=== PATIENT | female | born 1960 | race Hispanic/Latino ===

== ENCOUNTER → 2024-02-16 | Outpatient (CLI) | payer MEDICAID ==
--- NOTE | 2024-02-16 09:57 | HMCIMG ---
UPPER GI TRACT, WO KUB REASON: Heartburn, Epigastric pain. COMPARISON: None TECHNIQUE: Biphasic upper GI series study was performed. FINDINGS: There is no obstruction to the antegrade passage of barium from mouth through jejunum. A normal esophageal stripping wave is seen. A small hiatal hernia is seen. There is gastroesophageal reflux into the level of the mid thoracic esophagus. Stomach is well distended without ulceration or mass lesion. Duodenal bulb and duodenal sweep are unremarkable. IMPRESSION: No obstruction. Small hiatal hernia. Gastroesophageal reflux into the level of the mid thoracic esophagus.
== END | disposition home or self-care (01) ==
LOC: RAH 08:45
PROVIDERS: ATTEND Internal Medicine Gastroenterology
DX: K21.9 Gastro-esophageal reflux disease without esophagitis (principal); K44.9 Diaphragmatic hernia without obstruction or gangrene; R10.13 Epigastric pain
CPT/HCPCS: 74240

== ENCOUNTER → 2024-09-01 | Outpatient (CLI) | payer MEDICAID ==
[2024-09-01] MEDS: REGADENOSON 0.4 MG/5 ML PF SYG IVP ONE (10:44)
--- NOTE | 2024-09-05 17:11 | HMCSR ---
APPROVED REPORT Height: 5 ft 3in Weight: 181 lbs TEST INDICATIONS Angina Pectoris Unspecified The imaging protocol used to acquire images was Rest Tc-99m/stress Tc-99m 1 day Consent: The procedure was explained and understood by the patient. Informerd consent was witnessed Gabriel Myers RN First, low dose rest was performed then high dose stress. RESTING DATA: The resting ekg shows: NSR Rest SPECT myocardial perfusion imaging was performed in supine position 62 minutes following the int ravenous injection of 11 mCi of Tc-99 Sestamibi. Time of rest injection: 08:44: Date: 09/01/2024 Time of rest imagin:46: Date: 09/01/2024 PHARMACOLOGIC STRESS: Pharmacologic stress test was performed by injecting regadenoson 0.4 mg IV push followed by the intra venous injection of 30.2 mCi of Tc-99 Sestamibi. Time of stress injection: 10:24: Date: 09/01/2024 Time of stress imagin:21: Date: 09/01/2024 Heart Rate at time of stress injection: 65 bpm. Gated Stress SPECT was performed 57 minutes after stress injection. The images were gated to evaluate regional wall motion and calculate left ventricular ejection fracti on. STRESS DETAILS Reason for Termination: Infusion complete Stress Symptoms: stomach pain Max HR Achieved: 94 bpm % of APMHR Achieved: 60 Max Blood Pressure: 133/78 mmHg Stress ECG: NSR Study quality was good. Lung uptake was Normal. Artifact: breast and diaphragmatic artifact LEFT VENTRICLE Size: The left ventricular size is normal. Systolic Function:The left ventricular systolic function is normal. The left ventricular ejection fraction was calculated to be 73%.TID = . LV PERFUSION The rest and stress images show normal perfusion. IMPRESSION Normal pharmacologic nuclear stress test. Global LV Function: Normal Stress ECG Summary: Nondiagnostic LV Perfusion Summary: Normal Conclusion Normal pharmacologic nuclear stress test. Global LV Function: Normal Stress ECG Summary: Nondiagnostic LV Perfusion Summary: Normal Low risk scan
== END | disposition home or self-care (01) ==
LOC: SHCH 08:26
PROVIDERS: ATTEND Internal Medicine Cardiovascular Disease
DX: I20.9 Angina pectoris, unspecified (principal); R10.9 Unspecified abdominal pain
CPT/HCPCS: 78452; 93017; J2785; A9500 ×2